=== PATIENT | male | born 1965 | race Caucasian/White ===

== ENCOUNTER → 2017-08-23 | Day surgery (SDC) | payer BC, OTHER ==
[~2017-08-23] MED LIST: LIDOCAINE 2% INJ 100 MG/5 ML SDV (FOR ANES.) As Ordered; PROPOFOL 200 MG/20 ML VIAL As Ordered
[2017-08-23] MEDS: NS 1,000 ML IV (11:30)
== END | disposition home or self-care (01) ==
LOC: M OPP 11:09
DX: Z12.11 Encounter for screening for malignant neoplasm of colon (principal); D12.0 Benign neoplasm of cecum; D12.1 Benign neoplasm of appendix; D12.2 Benign neoplasm of ascending colon; D12.3 Benign neoplasm of transverse colon; D12.4 Benign neoplasm of descending colon; M10.9 Gout, unspecified; Z79.899 Other long term (current) drug therapy
CPT/HCPCS: 45385

== ENCOUNTER 2018-04-04 09:34 | Day surgery (SDC) | payer BC, OTHER ==
[2018-04-04] MEDS: NS 1,000 ML IV (10:50)
[2018-04-04] MEDS ORDERED: PROPOFOL 200 MG/20 ML VIAL As Ordered ×4 (10:56→11:48)
[2018-04-04] MEDS ORDERED: LIDOCAINE 2% INJ 100 MG/5 ML SDV (FOR ANES.) As Ordered (10:56)
== END 2018-04-04 12:15 | disposition home or self-care (01) ==
LOC: M OPP 09:34
DX: Z09 Encounter for follow-up examination after completed treatment for conditions other than malignant neoplasm (principal); D37.5 Neoplasm of uncertain behavior of rectum; Z86.010 Personal history of colon polyps; D12.1 Benign neoplasm of appendix; D12.0 Benign neoplasm of cecum; D12.3 Benign neoplasm of transverse colon; D12.5 Benign neoplasm of sigmoid colon; K64.8 Other hemorrhoids; M10.9 Gout, unspecified; Z79.899 Other long term (current) drug therapy; Z80.0 Family history of malignant neoplasm of digestive organs
CPT/HCPCS: 45385

== ENCOUNTER → 2019-11-01 | Outpatient (REF) | payer BC, OTHER ==
[~2019-11-01] MED LIST changes: -LIDOCAINE 2% INJ 100 MG/5 ML SDV (FOR ANES.) As Ordered; -PROPOFOL 200 MG/20 ML VIAL As Ordered; +ZYLO300T6 PO
== END ==
LOC: M LAB REF 16:35
PROVIDERS: ATTEND Nurse Practitioner Family
DX: B35.1 Tinea unguium (principal)

== ENCOUNTER → 2020-03-20 | Outpatient (CLI) | payer BC, OTHER ==
[~2020-03-20] MED LIST changes: +ACET160S3 PO; +ECOT81TA5 PO; +MS C15TA8 PO; +PERC5TAB12 PO; +TRAM50TA2 PO
== END ==
LOC: M LABSMTC 11:09
PROVIDERS: ATTEND Anesthesiology
DX: Z11.59 Encounter for screening for other viral diseases (principal)

== ENCOUNTER → 2020-03-20 | Outpatient (CLI) | payer BC, OTHER ==
[2020-03-20 17:41] LABS: MEAN CORPUSCULAR HEMOGLOBIN 31.6 pg (27.0-33.0); MEAN CORPUSCULAR HGB CONC 33.3 g/dl (32.0-36.5); MEAN CORPUSCULAR VOLUME 94.7 fl (80.0-96.0); PLATELET COUNT, AUTOMATED 238 10^3/uL (150-450); RED BLOOD COUNT 4.75 10^6/uL (4.30-6.10); WHITE BLOOD COUNT 4.5 10^3/uL (4.0-10.0)
[2020-03-20 17:51] LABS: INR 0.89; PROTHROMBIN TIME 12.2 SECONDS (11.8-14.0)
[2020-03-20 17:52] LABS: ALBUMIN 3.6 GM/DL (3.2-5.2); ALT/SGPT 30 U/L (12-78); BILIRUBIN,TOTAL 0.5 MG/DL (0.2-1.0); BLOOD UREA NITROGEN 11 MG/DL (7-18); CALCIUM LEVEL 8.8 MG/DL (8.5-10.1); CARBON DIOXIDE LEVEL 28 MEQ/L (21-32); CHLORIDE LEVEL 107 MEQ/L (98-107); GLOMERULAR FILTRATION RATE > 60.0 (>56); GLUCOSE, FASTING 89 MG/DL (70-100); SODIUM LEVEL 138 MEQ/L (136-145); TOTAL PROTEIN 6.6 GM/DL (6.4-8.2)
[2020-03-20 18:04] LABS: ERYTHROCYTE SEDIMENTATION RATE 2 mm/hr (0-20)
--- NOTE | 2020-03-30 18:38 | ECGEPIP ---
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
--- NOTE | 2020-04-08 09:55 | REP ---
CHEST X-RAY: CLINICAL: Preoperative assessment. TECHNIQUE: PA and lateral. FINDINGS: Mediastinum and cardiac silhouette are normal. Lung obregon are clear. No consolidation, effusion or pneumothorax. Skeletal structures are intact. IMPRESSION: Normal chest x-ray. MTDD
== END ==
LOC: M LAB 15:51
PROVIDERS: ATTEND Orthopaedic Surgery
DX: Z01.818 Encounter for other preprocedural examination (principal); M17.11 Unilateral primary osteoarthritis, right knee; R94.31 Abnormal electrocardiogram [ECG] [EKG]

== ENCOUNTER 2020-03-25 10:00 | Inpatient (IN) | payer BC, OTHER ==
--- NOTE | 2020-03-22 06:48 | HPE ---
DATE OF ANTICIPATED ADMISSION: 03/25/2020 ATTENDING PHYSICIAN: Dr. Becerra CHIEF COMPLAINT: Right knee pain and stiffness. HISTORY: Patient is a pleasant 55-year-old male with progressively worsening right knee pain and stiffness. He failed to improve with conservative measures. He continues to have symptoms with weightbearing activities and activities of daily living. He has consented for an elective right total knee arthroplasty with Dr. Becerra for his continued symptoms. Medical optimization pending with Dr. Royal. CURRENT MEDICATIONS: Allopurinol 300 mg daily ALLERGIES: There are no known drug allergies. CHRONIC MEDICAL CONDITIONS: Gout. PAST SURGICAL HISTORY: Right knee arthroscopy. SOCIAL HISTORY: Patient denies tobacco use and occasionally consumes alcohol. REVIEW OF SYSTEMS: Patient does have seasonal allergies but no symptoms currently. No complaints of chest pain, shortness of breath, lightheadedness, dizziness, or headaches. Denies fevers, chills, nausea, vomiting, or diarrhea. Denies any abdominal pain. Patient does have right knee pain with weightbearing activities and activities of daily living. PHYSICAL EXAMINATION: GENERAL: Well-nourished, well-developed male in no apparent distress. He is alert, oriented, and cooperative. Mood and affect are appropriate. VITAL SIGNS: Height 5 feet 10 inches, weight 220 pounds, temperature 96 degrees, blood pressure 122/76, heart rate 64, respirations 17. HEART: Regular rate and rhythm. LUNGS: Clear to auscultation bilaterally. ABDOMEN: Soft and nontender to palpation. Bowel sounds are present. MUSCULOSKELETAL: Right knee does show benign surgical scars. There is tenderness to palpation along the medial joint line. Patient can extend the right knee fully and flex to approximately 110 degrees. Right lower extremity strength is 5/5. Calf is soft and nontender to palpation. No evidence of deep venous thrombosis (DVT). He is neurovascularly intact distally. Right knee x-ray notable for end-stage degenerative changes. IMPRESSION: Right knee osteoarthritis. PLAN: Patient has consented for an elective right total knee arthroplasty with Dr. Becerra for his continued symptoms. Medical optimization pending with Dr. Royal. Patient will start using his Bactroban and Hibiclens as directed. He will be nothing by mouth after midnight the night prior to surgery. Patient will call [facility] Wednesday afternoon, 03/22/2020, for report time on day of surgery. [facility]
[~2020-03-25] VITALS: Ht 177.8 cm; Wt 99.8 kg
[~2020-03-25 10:00] MED LIST changes: -ACET160S3 PO; -ECOT81TA5 PO; +LR 1,000 ML IV ONE; -MS C15TA8 PO; -PERC5TAB12 PO; -TRAM50TA2 PO; +allopurinoL 300 MG TAB PO SCH
[2020-03-25] MEDS ORDERED: ROPIvacaine 0.5% 30ML INJECTION (J2795 PER 1MG) ONE (10:01)
[2020-03-25] MEDS ORDERED: EPINEPHrine INJ 1 MG/ML 1ML AMP ONE (10:01)
[2020-03-25] MEDS ORDERED: dexameTHASONE 10MG/1ML VIAL PRES.FREE (J1100 PER 1MG) ONE (10:01)
[2020-03-25] MEDS ORDERED: ACETAMINOPHEN 500 MG TAB As Ordered ONE (10:29)
[2020-03-25] MEDS ORDERED: ceFAZolin 2 GM/D5W 50 ML IV BAG (J0690 PER 500MG) As Ordered ONE (10:29)
[2020-03-25] MEDS ORDERED: ACETAMINOPHEN 500 MG TAB PO ONE (11:00)
[2020-03-25] MEDS ORDERED: ceFAZolin SOD 2 GM in IV 1 EA IV ONE (11:00)
[2020-03-25] MEDS ORDERED: BUPIVACAINE HCL 0.25% 10ML VIAL As Ordered ONE (11:42)
[2020-03-25] MEDS ORDERED: ceFAZolin 1GM VIAL (J0690 PER 500MG) As Ordered ONE (11:42)
[2020-03-25] MEDS ORDERED: BUPIVACAINE LIPOSOME/PF 1.3% 20ML VIAL (13.3MG/ML)(EXPAREL)(C9290 PER1MG) As Ordered ONE (11:42)
[2020-03-25] MEDS ORDERED: EPINEPHrine INJ 1 MG/ML 1ML AMP As Ordered ONE (11:43)
[2020-03-25] MEDS ORDERED: TRANEXAMIC ACID 100 MG/ML 10ML VIAL As Ordered ONE (11:43)
[2020-03-25] MEDS ORDERED: MIDAZOLAM INJ 2MG/2ML VIAL (J2250 PER 1MG) As Ordered ONE ×2 (12:07→13:19)
[2020-03-25] MEDS ORDERED: fentaNYL 100 MCG/2 ML INJECTION (J3010) As Ordered ONE ×2 (12:07→13:19)
[2020-03-25] MEDS ORDERED: MIDAZOLAM INJ 2MG/2ML VIAL (J2250 PER 1MG) IV ONE (13:00)
[2020-03-25] MEDS ORDERED: fentaNYL 100 MCG/2 ML INJECTION (J3010) IV ONE (13:00)
[2020-03-25] MEDS ORDERED: propofoL 200 MG/20 ML VIAL As Ordered ONE ×5 (13:19→14:53)
[2020-03-25] MEDS ORDERED: oxyCODONE 5MG TAB PO PRN (15:30)
[2020-03-25] MEDS ORDERED: LR 1,000 ML IV SCH ×2 (15:30→15:45)
[2020-03-25] MEDS ORDERED: fentaNYL 100 MCG/2 ML INJECTION (J3010) IV PRN (15:30)
[2020-03-25] MEDS ORDERED: ONDANSETRON 4MG/2ML VIAL IV PRN (15:45)
[2020-03-25] MEDS ORDERED: MORPHINE 4 MG/ML 1ML VIAL/SYRINGE (J2270) IV PRN (15:45)
[2020-03-25] MEDS ORDERED: ACETAMINOPHEN TAB 650MG DOSE (2X325MG) PO PRN (15:45)
[2020-03-25] MEDS ORDERED: PERCOCET 5MG/325MG TAB PO PRN ×3 (15:45→21:30)
--- NOTE | 2020-03-25 16:20 | CR.PDOC ---
General Date of Consultation: Mar 25, 2020 Consultation Chief complaint: Presented to [facility] for elective orthopedic procedure Hospitalist service was consulted for medical management History of present illness: Patient is a 55-year-old male with a PMHx of Gout who [facility] emergency [facility] for elective orthopedic procedure. Patient has been medically optimized by his outpatient provider, Dr. Win Royal for his elective total right knee arthroplasty. Patient received a CXR, EKG and lab work as part of his workup. Patient is seen postoperatively. He denies any chest pain, shortness of breath, palpitations, nausea, vomiting, abdominal pain, constipation, diarrhea, or urinary discomfort. Denies any recent fevers or chills. Denies any changes in his weight or appetite. 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 Review of Systems: 10 point review of systems complete, all negative otherwise stated in HPI Physical exam: - Vitals: BP [136/80], HR [70], RR [16], Sat [99%NC2L], Temp [97.2F] - General: Lying in bed, Speaking in full sentences, AAOx3 - HEENT: NC, AT, PERRLA - CVS: RRR, +S1S2, - Murmurs / rubs / gallops - Lungs: Fair air entry bilaterally, No appreciable wheezing / rales / rhonchi - Abdomen: Soft, Non-distended, Non-tender - Extremities: No lower extremity edema, No calf tenderness, R knee in dressing - Neuro: No focal motor or sensory deficit - Skin: No visible rashes Assessment and Plan: Elective total right knee arthroplasty (POD#0) - Presented to [facility] for an elective orthopedic procedure - As received outpatient optimization from his primary care provider, Dr. Win Royal - Pain control, anticoagulation and physical therapy at the direction of primary orthopedic team Gout - c/w Allopurinol DVT prophylaxis - Anticoagulation as per primary orthopedic team Vital Signs/I&O Vital Signs Date Time Temp Pulse Resp B/P (MAP) Pulse Ox O2 Delivery O2 Flow Rate FiO2 03/25/20 12:35 70 16 136/80 (98) 99 Nasal Cannula 2 03/25/20 10:27 97.2 Allergies Coded Allergies: No Known Allergies (Unverified , 03/15/20) Home Medications Scheduled Allopurinol (Zyloprim) 300 Mg Tab, 300 MG PO DAILY, (Reported) MAREN RIOS MD Mar 25, 2020 14:26
[2020-03-25 16:45] VITALS: BP 135/85
[2020-03-25 17:15] VITALS: BP 126/82
[2020-03-25 18:15] VITALS: BP 141/98
[2020-03-25 19:15] VITALS: BP 137/96
[2020-03-25 20:15] VITALS: BP 128/89
[2020-03-25] MEDS: ceFAZolin SOD 2 GM in IV 1 EA IV SCH (20:51)
[2020-03-25 21:15] VITALS: BP 135/88
[2020-03-25] MEDS: PERCOCET 5MG/325MG TAB PO PRN (23:54)
[2020-03-26 02:00] VITALS: BP 126/81
[2020-03-26] MEDS: PERCOCET 5MG/325MG TAB PO PRN (05:06)
[2020-03-26] MEDS: ceFAZolin SOD 2 GM in IV 1 EA IV SCH ×2 (05:06→12:18)
[2020-03-26 06:00] VITALS: BP 128/83
[2020-03-26] MEDS ORDERED: PERC5TAB12 PO ×2 (06:50→07:51)
[2020-03-26] MEDS ORDERED: ECOT81TA5 PO (06:51)
[2020-03-26 06:53] LABS: HEMATOCRIT 38.6 % (42.0-52.0); HEMOGLOBIN 13.1 g/dl (13.5-17.5); MEAN CORPUSCULAR HEMOGLOBIN 31.7 pg (27.0-33.0); MEAN CORPUSCULAR HGB CONC 33.9 g/dl (32.0-36.5); MEAN CORPUSCULAR VOLUME 93.5 fl (80.0-96.0); PLATELET COUNT, AUTOMATED 201 10^3/uL (150-450); RED BLOOD COUNT 4.13 10^6/uL (4.30-6.10); WHITE BLOOD COUNT 8.3 10^3/uL (4.0-10.0)
[2020-03-26 07:15] LABS: ALT/SGPT 26 U/L (12-78); BILIRUBIN,TOTAL 0.6 MG/DL (0.2-1.0); BLOOD UREA NITROGEN 7 MG/DL (7-18); CALCIUM LEVEL 8.2 MG/DL (8.5-10.1); CARBON DIOXIDE LEVEL 26 MEQ/L (21-32); CHLORIDE LEVEL 106 MEQ/L (98-107); CREATININE FOR GFR 0.91 MG/DL (0.70-1.30); GLOMERULAR FILTRATION RATE > 60.0 (>56); GLUCOSE, FASTING 111 MG/DL (70-100); MAGNESIUM LEVEL 2.1 MG/DL (1.8-2.4); SODIUM LEVEL 139 MEQ/L (136-145); TOTAL PROTEIN 5.6 GM/DL (6.4-8.2)
[2020-03-26] MEDS: allopurinoL 300 MG TAB PO SCH ×3 (08:54→09:10)
[2020-03-26] MEDS: MIRALAX *UNIT DOSE* 17GM PACKET PO SCH ×2 (08:54→09:00)
[2020-03-26] MEDS ORDERED: MOM 30ML SUSPENSION UDC PO SCH (09:00)
[2020-03-26] MEDS ORDERED: ASPIRIN 81 MG CHEW TABLET PO SCH (09:00)
[2020-03-26 10:00] VITALS: BP 133/82
[2020-03-26] MEDS ORDERED: traMADol 50 MG TAB PO PRN ×2 (11:00)
[2020-03-26] MEDS ORDERED: TRAM50TA2 PO (11:02)
[2020-03-26] MEDS ORDERED: ACET160S3 PO (11:02)
--- NOTE | 2020-03-26 11:30 | IPNPDOC ---
Text Note Date of Service The patient was seen on 03/26/20. NOTE Subjective: Patient is a 55-year-old male with a PMHx of Gout who presented [facility] the emergency [facility] for elective orthopedic procedure. Patient has been medically optimized by his outpatient provider, Dr. Win Royal for his elective total right knee arthroplasty. Patient received a CXR, EKG and lab work as part of his workup. Hospital services called for medical management. Patient was seen and examined at the bedside. Patient reports that he has had an uneventful evening. Has been ambulating to the bathroom. Denies any lightheadedness, dizziness, chest pain, shortness breath, palpitations, has not spent any nausea, vomiting or abdominal pain. He has not yet had a bowel movement, but does have the ability to pass flatus. Denies any urinary discomfort. Objective: Vitals (See below) General: Lying in bed, comfortable, AAOx3 HEENT: NC, AT CVS: RRR, +S1S2 Lungs: Fair air entry b/l, no evidence of wheezing, rhonchi or rales Abdomen: Soft, nondistended and nontender Extremities: Lower extremities are free of any pitting edema, - Calf tenderness Assessment and plan: Elective total right knee arthroplasty (POD#1) - Presented to [facility] for an elective orthopedic procedure - As received outpatient optimization from his primary care provider, Dr. Win Royal - Pain control, anticoagulation and physical therapy at the direction of primary orthopedic team - Patient was working with physical therapy today; if he clears he will be discharged home with services Gout - c/w Allopurinol DVT prophylaxis - Anticoagulation as per primary orthopedic team Disposition: - Anticipate discharge home today VSYoung, I+O VSYoung, I+O Laboratory Tests 03/26/20 06:35 Vital Signs Date Time Temp Pulse Resp B/P (MAP) Pulse Ox O2 Delivery O2 Flow Rate FiO2 03/26/20 11:19 16 03/26/20 10:00 98.4 71 133/82 (99) 99 Room Air 03/25/20 12:35 2 I&O- Last 24 Hours up to 6 AM 03/26/20 06:00 Intake Total 2980 ml Output Total 20 ml Balance 2960 ml MAREN RIOS MD Mar 26, 2020 11:30
[2020-03-26 13:21] VITALS: BP 124/66
[2020-03-26 13:22] VITALS: BP_SYST 114; BP_SYST 121; BP_DIAS 69; BP_DIAS 71
[2020-03-26 14:00] VITALS: BP 126/78
[2020-03-26] MEDS ORDERED: MS C15TA8 PO (15:57)
--- NOTE | 2020-04-08 13:21 | RO ---
DATE OF OPERATION: 03/25/2020 PREOPERATIVE DIAGNOSIS: Right knee post-traumatic tricompartmental degenerative arthritis. POSTOPERATIVE DIAGNOSIS: Right knee post-traumatic tricompartmental degenerative arthritis. PROCEDURES: * Right total knee arthroplasty using a size 5 cruciate-retaining femoral component cemented, with a size 5 tibial tray, a 10-mm rotating platform polyethylene insert, and a 35-mm polyethylene button. All components were cemented. Prosthesis was made by [employer]. It was an Attune Knee. * Removal of proximal tibial interference screw. COMPLICATIONS: None. ESTIMATED BLOOD LOSS: 20 mL. SPECIMENS: Joint surface. PROCEDURE: Antibiotics were given intravenously preoperatively. A successful right femoral nerve block and then a spinal anesthetic were induced. The tourniquet was placed on the right upper thigh and not inflated. The right lower extremity was carefully prepped and draped in the usual sterile fashion, elevated, and after an appropriate time-out, the tourniquet was inflated. The previous incision was utilized distally and then we continued longitudinally proximally for a medial parapatellar approach to the knee. Bovie electrocautery was used to coagulate crossing vessels. Subperiosteal dissection around the proximal, medial, and lateral tibial plateaus performed. The patella was everted. The knee was flexed. Drill was placed down the center of the femoral canal, followed by the intramedullary gladis and a distal femoral cutting jig set at 5 valgus, cut at 9-mm resection level for a right knee. Block was pinned into position. Distal femoral cut performed. AP sizing jig measured for a size 5 femoral component. Then, 3 of external rotation were dialed in and then the pins were placed followed by the 4-in-1 block. Then, the anteroposterior chamfer cuts were performed taking great care to protect the surrounding soft tissues. The notch jig for the notchplasty was applied and the notchplasty performed anteriorly. We then exposed the proximal tibia and used the extramedullary alignment jig to estimate being parallel to the mechanical axis of the tibia, referencing off of the medial tibial condyle at 4-mm resection level. The block was pinned into position. Secondary check of the extramedullary gladis confirmed that we appeared to be parallel. Thus, the proximal tibial osteotomy was performed. We then placed a lamina solar energy consultant and designer medially and performed a completion lateral meniscectomy debriding the posterolateral osteophytes. We then placed the lamina solar energy consultant and designer laterally and performed a completion medial meniscectomy debriding theposteromedial osteophytes. The spacer block was then applied and a 10-mm fit the best, with good stability to varus/valgus stress testing, both in flexion and in extension. It was very symmetric in both the flexion and extension gaps. I did therefore feel we needed to go to a cruciate-sacrificing knee replacement. We exposed the proximal tibia, sized for a size 5 tibial tray, which was pinned into position followed by the reamer. However, as the reamer was introduced, we did hit the interference screw in the tibia. Thus, at this point, we took time to find the tibial interference screw. It was completely covered over with cortical bone. However, there were a few #5 Ethibond suture knots remaining to help guide us, but we had to use an osteotome, rongeurs, and curettes to eventually find the head of the interference screw. This took a considerable amount of time, but once we were able to do so, I was able to clear the screw hole of bone using a combination of curettes and sharp-pointed reduction forceps and towel clamp. Then, we were able to get the interference screw catering truck driver into position and back the screw out successfully. We copiously irrigated this area and later on we bone-grafted this defect in the tibia. Then, we proceeded with the reamer and broach. Then, the trial 10-mm polyethylene was placed, followed by the trial femoral component, brought the knee to extension, everted the patella, performed patellar osteotomy, and sized for a 35 button. Lug holes were drilled. Trial placed and patellofemoral tracking was anatomic. We then drilled the lug holes for the femur and then removed all of the trial components, and then placed Exparel in the subperiosteal tissues around the distal femur and the proximal tibia. Then, at this point, my events and promotions assistant, Mr. Cain, mixed the cement on the back table as I prepared the bony surfaces for cementing with a copious amount of pulsatile lavage irrigation solution. I also then bone-grafted the tibial defect to help prevent cement extruding from the area, but also help structurally. I rongeured small pieces of our chamfer cut to bone graft this area. Mr. Cain was also critical to the success of this difficult procedure by helping to manipulate the knee as needed, help with appropriate soft tissue retraction, help to close the wound, mix the cement, prepare the patient for surgery, amongst many other tasks, to allow me to perform the operation smoothly, efficiently, and safely. Once all of the bony surfaces were thoroughly dried, we then cemented the tibial tray, we removed excess cement, placed the polyethylene, cemented the femoral component, removed excess cement, brought the knee to extension, cemented the patellar button, removed excess cement, and held it with a clamp with the knee in full extension until the cement hardened. While the knee was held in full extension, we copiously pulsatile lavaged and irrigated out the knee joint once again and then placed tranexamic acid into the knee, and then closed the apex of the arthrotomy with two #1 PDS sutures. The medial parapatellar area was closed with a #1 PDS suture and then a double-armed #1 Stratafix used to close the capsule. The tourniquet was then released. Then, we irrigated again and closed the deep subdermal tissue with interrupted 2-0 PDS sutures. The skin was closed with arpan covered by an Optifoam and dry sterile bulky dressing. He was then transferred to the recovery room in stable condition. There were no intraoperative complications. KATT
--- NOTE | 2020-04-09 13:32 | DSES ---
DATE OF ADMISSION: 03/25/2020 DATE OF DISCHARGE: 03/26/2020 ATTENDING DOCTOR: Khadra Becerra M.D. ADMITTING DIAGNOSIS: Osteoarthritis right knee. OTHER DIAGNOSIS: Gout. DISCHARGE DIAGNOSIS: Osteoarthritis right knee; status post right total knee arthroplasty. OPERATION PERFORMED: Right total knee arthroplasty. HISTORY OF PRESENT ILLNESS: This is a 55-year-old male patient with progressively worsening right knee pain and stiffness. He failed to improve with conservative management. He was admitted for elective knee replacement on the right side. HOSPITAL COURSE: Patient was admitted on the day of surgery, and underwent a right total knee arthroplasty, which was uneventful. He did well in the postoperative period and hospital course was without complications. He was up with physical therapy per their protocol and his pain was controlled. On the day of discharge, he was weightbearing as tolerated on his right lower extremity. He will use YOSVANY stockings for 30 days postoperatively for DVT prophylaxis. He will resume his preoperative medications and diet. He will also use aspirin 81 mg b.i.d. for DVT prophylaxis per their protocol. He will follow-up in our office in 10-14 days for surgical follow-up. He was given instructions to include but not limited to wound monitoring and activity limitations. Please refer to the medical record for further details. KATT
--- NOTE | 2020-04-10 08:17 | REP ---
RIGHT KNEE SERIES: 2-VIEWS HISTORY: Postop. FINDINGS: The patient is status post right knee arthroplasty. Femoral, tibial, and patellar components are well aligned with respect to their iqugmiut bones and with respect to each other. There is also a metallic anchor in the distal femur suggesting previous ACL repair. Periarticular soft tissue emphysema is seen and anterior skin arpan are noted. IMPRESSION: Status post right knee arthroplasty and apparently, anterior cruciate ligament (ACL) repair. KATT
== END 2020-03-26 15:30 | disposition home or self-care (01) | DRG 302 ==
LOC: M SDC 10:00 → EDSTATUS 13:00 → M MS5PR 16:20 → M SDC 17:32
PROVIDERS: ADMIT Orthopaedic Surgery; ATTEND Orthopaedic Surgery
PROC: 0SRC0J9 Replacement of Right Knee Joint with Synthetic Substitute, Cemented, Open Approach (ICD-10-PCS; principal; 2020-03-25 13:00)
DX: M17.11 Unilateral primary osteoarthritis, right knee (principal); M10.9 Gout, unspecified; Z79.899 Other long term (current) drug therapy

== ENCOUNTER → 2021-08-11 | Outpatient (CLI) | payer BC, OTHER ==
[~2021-08-11] MED LIST changes: +ACET160S3 PO; +ALLO300T2 PO; +AMOX500T PO; +ECOT81TA5 PO; +FISH1000 PO; -LR 1,000 ML IV ONE; +MS C15TA8 PO; +PERC5TAB12 PO; +TRAM50TA2 PO; +TURM500C PO; -allopurinoL 300 MG TAB PO SCH
== END ==
LOC: M LABSMTC 11:57
PROVIDERS: ATTEND Anesthesiology
DX: Z01.812 Encounter for preprocedural laboratory examination (principal); Z20.822 Contact with and (suspected) exposure to COVID-19

== ENCOUNTER 2021-08-15 08:27 | Day surgery (SDC) | payer BC, OTHER ==
[~2021-08-15] VITALS: Ht 175.3 cm; Wt 102.7 kg
[~2021-08-15 08:27] MED LIST changes: +NS 1,000 ML IV ONE
[2021-08-15] MEDS ORDERED: propofoL 200 MG/20 ML VIAL As Ordered ONE ×2 (09:47→10:10)
[2021-08-15 10:35] VITALS: BP 128/89
== END 2021-08-15 10:50 | disposition home or self-care (01) ==
LOC: M OPP 08:27
PROVIDERS: ATTEND Internal Medicine Gastroenterology
DX: Z12.11 Encounter for screening for malignant neoplasm of colon (principal); Z86.010 Personal history of colon polyps; Z80.0 Family history of malignant neoplasm of digestive organs; K63.5 Polyp of colon; K62.1 Rectal polyp; K64.8 Other hemorrhoids; K63.89 Other specified diseases of intestine; Z79.899 Other long term (current) drug therapy

== ENCOUNTER → 2021-10-30 | Outpatient (REF) | payer BC, OTHER ==
[~2021-10-30] MED LIST changes: -NS 1,000 ML IV ONE
== END ==
LOC: M LAB REF 12:08
PROVIDERS: ATTEND Physician Assistant
DX: R50.9 Fever, unspecified (principal); R05.9 Cough, unspecified

== ENCOUNTER 2023-08-05 06:51 | Day surgery (SDC) | payer BC, OTHER ==
[~2023-08-05] VITALS: Ht 175.3 cm; Wt 98.6 kg
[~2023-08-05 06:51] MED LIST changes: +BSS IRRIG/VANCO(10MG)/TOBRA(5MG)/EPINEPH(1:1000-0.5CC)500ML BAG-ORONLY IR ONE; +CEFUROXIME 1MG/0.1ML INTRACAMERAL INJ As Ordered ONE; +CYCLOPENTOLATE 1% OPHTH SOLN 2ML BTL OD SCH; +LIDOCAINE 1% SDV 5ML VIAL As Ordered ONE; +LIDOCAINE 3.5 % 1ML OPHTH TOPICAL GEL OU ONE; +OFLOXACIN 0.3 % (OCUFLOX) OPTH SOL 5ML OD ONE; +PHENYLEPHRINE 10% OPHTH SOL 5ML OD PRN; +PHENYLEPHRINE 2.5% OPHTH SOL 2ML OD SCH; +TROPICAMIDE 1% OPHTH SOLN 15ML OD SCH
[2023-08-05] MEDS ORDERED: MIDAZOLAM INJ 2MG/2ML VIAL As Ordered ONE (06:57)
[2023-08-05] MEDS ORDERED: fentaNYL 100 MCG/2 ML INJECTION As Ordered ONE (06:57)
[2023-08-05 08:30] VITALS: BP 122/73; TEMP 98.2; O2SAT 95
== END 2023-08-05 08:49 | disposition home or self-care (01) ==
LOC: M SDC 06:51
PROVIDERS: ATTEND Ophthalmology
DX: H25.11 Age-related nuclear cataract, right eye (principal); M10.9 Gout, unspecified; Z79.899 Other long term (current) drug therapy; Z90.49 Acquired absence of other specified parts of digestive tract
CPT/HCPCS: 66984; J0697; J2250; J3010; V2632

== ENCOUNTER 2023-10-28 07:29 | Day surgery (SDC) | payer BC ==
[~2023-10-28] VITALS: Ht 175.3 cm; Wt 98.1 kg
[~2023-10-28 07:29] MED LIST changes: -BSS IRRIG/VANCO(10MG)/TOBRA(5MG)/EPINEPH(1:1000-0.5CC)500ML BAG-ORONLY IR ONE; -CEFUROXIME 1MG/0.1ML INTRACAMERAL INJ As Ordered ONE; -CYCLOPENTOLATE 1% OPHTH SOLN 2ML BTL OD SCH; -LIDOCAINE 1% SDV 5ML VIAL As Ordered ONE; -LIDOCAINE 3.5 % 1ML OPHTH TOPICAL GEL OU ONE; -OFLOXACIN 0.3 % (OCUFLOX) OPTH SOL 5ML OD ONE; -PHENYLEPHRINE 10% OPHTH SOL 5ML OD PRN; -PHENYLEPHRINE 2.5% OPHTH SOL 2ML OD SCH; -TROPICAMIDE 1% OPHTH SOLN 15ML OD SCH
[2023-10-28] MEDS: OFLOXACIN 0.3 % (OCUFLOX) OPTH SOL 5ML OS ONE (08:19)
[2023-10-28] MEDS: ATROPINE SULFATE 1% OPHTH SOLN 2ML BTL OS SCH (08:19)
[2023-10-28] MEDS: LIDOCAINE 3.5 % 1ML OPHTH TOPICAL GEL OU ONE (08:19)
[2023-10-28] MEDS: PHENYLEPHRINE 2.5% OPHTH SOL 2ML OS SCH (08:19)
[2023-10-28] MEDS: TROPICAMIDE 1% OPHTH SOLN 15ML OS SCH (08:19)
[2023-10-28] MEDS: PHENYLEPHRINE 10% OPHTH SOL 5ML OS PRN (08:19)
[2023-10-28] MEDS: LIDOCAINE 1% SDV 5ML VIAL As Ordered ONE (08:23)
[2023-10-28] MEDS ORDERED: MIDAZOLAM INJ 2MG/2ML VIAL As Ordered ONE (08:24)
[2023-10-28] MEDS ORDERED: fentaNYL 100 MCG/2 ML INJECTION As Ordered ONE (08:24)
[2023-10-28] MEDS: BSS IRRIG/VANCO(10MG)/TOBRA(5MG)/EPINEPH(1:1000-0.5CC)500ML BAG-ORONLY As Ordered ONE (08:27)
[2023-10-28] MEDS: CEFUROXIME 1MG/0.1ML INTRACAMERAL INJ As Ordered ONE (08:27)
[2023-10-28 08:36] VITALS: BP 120/80; TEMP 97; O2SAT 95
== END 2023-10-28 08:46 | disposition home or self-care (01) ==
LOC: M SDC 07:29
PROVIDERS: ATTEND Ophthalmology
DX: H25.12 Age-related nuclear cataract, left eye (principal); M10.9 Gout, unspecified; Z79.899 Other long term (current) drug therapy; Z90.49 Acquired absence of other specified parts of digestive tract
CPT/HCPCS: 66984; J0697; J2250; J3010; V2632

== ENCOUNTER → 2024-02-16 | Outpatient (REF) | payer BC, OTHER | LOC: M LAB REF 17:17 | PROVIDERS: ATTEND Surgery | DX: D22.72 Melanocytic nevi of left lower limb, including hip (principal) ==

== ENCOUNTER → 2025-03-21 | Outpatient (REF) | payer BC | LOC: M SFHCDERM 08:38 | PROVIDERS: ATTEND Surgery | DX: R23.9 Unspecified skin changes (principal) ==

== ENCOUNTER → 2025-05-04 | Outpatient (CLI) | payer BC ==
[2025-05-04 14:43] LABS: BASO # 0.0 10^3/uL (0.0-0.2); BASO % 0.6 % (0.0-1.0); EOS # 0.1 10^3/uL (0.0-0.5); EOS % 1.7 % (0.0-3.0); LYMPH # 2.0 10^3/uL (1.5-5.0); LYMPH % 30.9 % (24.0-44.0); MONO # 0.7 10^3/uL (0.0-0.8); MONO % 10.3 % (2.0-8.0); NEUTROPHILS # 3.6 10^3/uL (1.5-8.5); NEUTROPHILS % 56.3 % (36.0-66.0); PLATELET COUNT, AUTOMATED 266 10^3/uL (150-450)
[2025-05-04 15:11] LABS: RHEUMATOID FACTOR QUANT 4.9 IU/ML (<14)
[2025-05-04 15:12] LABS: ALT/SGPT 50 U/L (7.0-40); AST/SGOT 68 U/L (<34); CALCIUM LEVEL 8.7 MG/DL (8.5-10.1); CARBON DIOXIDE LEVEL 29 MMOL/L (20-31); CHLORIDE LEVEL 104 MMOL/L (98-107); CREATININE FOR GFR 0.97 MG/DL (0.70-1.30); GLOMERULAR FILTRATION RATE > 90.0 (>56); POTASSIUM SERUM 4.0 MMOL/L (3.5-5.1); SODIUM LEVEL 142 MMOL/L (136-145)
[2025-05-04 15:14] LABS: T UPTAKE 31.3 % (22.5-37.0); THYROXINE (T4) 5.3 UG/DL (4.5-10.9)
== END ==
LOC: M LAB 13:49
PROVIDERS: ATTEND Allergy & Immunology Allergy
DX: R21 Rash and other nonspecific skin eruption (principal)